=== PATIENT | male | born 1990 | race African-American/Black ===

== ENCOUNTER 2021-02-09 18:00 | Emergency (ER) | payer BC ==
[~2021-02-09] VITALS: Ht 185.4 cm; Wt 79.8 kg
[~2021-02-09 18:00] MED LIST: HYDR50CA PO; PRED10TA PO
[2021-02-09 18:19] VITALS: BP 126/99
== END 2021-02-09 22:01 | disposition home or self-care (01) ==
LOC: ER 18:01
DX: S06.0X1A Concussion with loss of consciousness of 30 minutes or less, initial encounter (principal); R51.9 Headache, unspecified; Z72.89 Other problems related to lifestyle; Z88.1 Allergy status to other antibiotic agents; Z79.899 Other long term (current) drug therapy; W19.XXXA Unspecified fall, initial encounter; Y93.89 Activity, other specified; Y92.89 Other specified places as the place of occurrence of the external cause; Y99.8 Other external cause status
CPT/HCPCS: 70450; 72125; 99285